=== PATIENT | female | born 1970 | race Caucasian/White ===

== ENCOUNTER 2017-12-09 10:39 | Day surgery (SDC) | END 2017-12-09 15:37 | disposition home or self-care (01) ==

== ENCOUNTER 2019-03-23 07:49 | Day surgery (SDC) | payer OTHER ==
[~2019-03-23] VITALS: Ht 157.5 cm; Wt 90.3 kg
[2019-03-23] VITALS (12 sets, daily range): BP systolic 108–136; BP diastolic 63–75; PULSE 58–88; RESP 16–22; Ht 157.5 cm; Wt 90.3 kg
[~2019-03-23 07:49] MED LIST: CEFAZOLIN 2 GM/50 ML (PMX) 50 ML IVPB SCH; KETO5DRO BOTH EYES; MINE3.5O31 BOTH EYES; NAPR-688 PO
--- NOTE | 2019-03-23 08:32 | PREAC ---
Date/Time of Note Date/Time of Note DATE: 03/23/19 TIME: 08:30 Anesthesia Eval and Record Evaluation Time Pre-Procedure Interview DATE: 03/23/19 TIME: 08:30 Age 48 Sex female NPO: 8 hrs Preoperative diagnosis right 5th hammertoe Planned procedure exostectomy,right 5th hammertoe correction Past Medical History Past Medical History: Includes GI: Obesity (bmi 36) Surgery & Anesthesia Issues No known issue Meds Anticoagulation: No Beta Billy within 24 hr: No Reason Beta Billy not given: Pt. not on B-Billy Reported Medications Naproxen* (Naproxen*) 500 Mg Tablet, 500 MG PO BID PRN for PAIN AND/OR INFLAMMATION, TAB 12/09/17 Discontinued Reported Medications Ketotifen Fumarate (EYE ITCH RELIEF) 5 Ml Drops, 1 BOTH EYES BID, BOTTLE 12/09/17 Artificial Tears* (Akwa Oint*) 3.5 Gm Oint, 1 APPLIC BOTH EYES HS, #1 TUB 12/09/17 Current Medications Cefazolin Sodium/ Dextrose 50 ml @ 100 mls/hr PREOP IVPB ; Start 03/23/19 at 06:00; Stop 03/23/19 at 19:00 Meds reviewed: Yes Allergies Coded Allergies: No Known Allergy (Unverified , 03/23/19) Allergies Reviewed: Yes Labs/Studies Labs Reviewed: Reviewed by anesthesiologist test: Negative Pre-procedure Exam Airway: Adequate mouth opening Mallampati: Mallampati II Teeth: Normal Lung: Normal Heart: Normal ASA Physical Status ASA physical status: 2 Emergency: None Planned Anesthetic General/MAC: LMA Planned Pain Management Parenteral pain med, Local by surgeon Pre-operative Attestations Prior to commencing anesthesia and surgery, the patient was re-evaluated, there was verification of: *The patient's identity *The results of appropriate recent lab work and preoperative vital signs *The above evaluation not changing prior to induction *Anesthetic plan, risk benefits, alternative and complications discussed with patient/family; questions answered; patient/family understands, accepts and wishes to proceed. TRACIE REID March 23, 2019 08:32
[2019-03-23] MEDS ORDERED: MIDAZOLAM 1 MG/ML 2 ML INJ ONE (08:44)
[2019-03-23] MEDS ORDERED: CEFAZOLIN 1 GM INJ ONE (08:44)
[2019-03-23] MEDS ORDERED: LIDOCAINE 2% (SDV) 5 ML INJ ONE (08:44)
[2019-03-23] MEDS ORDERED: FENTAnyl 50 MCG/ML VIAL ONE (08:44)
[2019-03-23] MEDS ORDERED: PROPOFOL 20 ML ONE ×2 (08:44→10:07)
[2019-03-23] MEDS ORDERED: POLYMYXIN/BACITRACIN 1L IRRIG ONE (08:50)
[2019-03-23] MEDS ORDERED: BUPIVACAINE 0.5% (SDV) 30 ML INJ ONE (08:58)
[2019-03-23] MEDS ORDERED: LIDOCAINE 2% (MDV) 20 ML INJ ONE (08:58)
[2019-03-23] MEDS ORDERED: LACTATED RINGER'S 500 ML IV ONE (09:00)
--- NOTE | 2019-03-23 09:33 | HPN ---
Date/Time of Note Date/Time of Note DATE: 03/23/19 TIME: 09:33 Interval H&P Admission Note Pt. seen H&P reviewed: No system changes LUX AMOS DPM March 23, 2019 09:33
[2019-03-23] MEDS ORDERED: DEXAMETHASONE 4 MG/ML 5 ML INJ ONE (09:54)
[2019-03-23] MEDS ORDERED: ONDANSETRON 4 MG INJ ONE (09:54)
[2019-03-23] MEDS ORDERED: EPHEDrine 25 MG/5 ML SYG ONE (10:21)
[2019-03-23] MEDS ORDERED: ONDANSETRON 4 MG INJ IV PRN (10:30)
[2019-03-23] MEDS ORDERED: OXYCODONE/ACETAMINOPHEN (5/325) TAB PO PRN ×2 (10:30)
[2019-03-23] MEDS ORDERED: HYDROmorphONE 1 MG/5 ML IV SYRINGE IV PRN ×3 (10:30)
[2019-03-23] MEDS ORDERED: MEPERIDINE 25 MG INJ IV PRN (10:30)
--- NOTE | 2019-03-23 10:44 | SIPON ---
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
--- NOTE | 2019-03-23 10:45 | OPR ---
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 Clinical and radiographic examination revealed significant condition requiring surgical management therefore authorization was submitted for revisional surgery of the right fifth toe hammertoe deformity. Risks and complications of this type of surgery was discussed with patient in great detail including but not limited to recurrence of the problem, failure of surgery to correct the problem, need for additional surgical procedures, postoperative infection, postoperative pain, chronic disability, short-term disability, nonunion, delayed union, malunion of bone, failure of hardware, pain secondary to neurovascular damage, deep venous thrombosis, limb loss and loss of life. The patient acknowledges understanding of the discussion and agrees to the procedure. An informed consent was obtained, signed and placed in the chart. No guarantee or warranty was given or implied as to the outcome of the procedure either in verbal or written form. Procedure Description The patient was seen in the preoperative area. Opportunity was given to patient to ask questions and all questions were answered. Patient acknowledges understanding of the discussion. The patient was then taken to the operating room and was placed on the operating table in the supine position. Patient was placed under mild IV sedation and I injected her right foot with 20 cc of a one-to-one mixture of 2% lidocaine plain and 0.5% Marcaine plain. A pneumatic ankle tourniquet was applied to the right lower extremity. The right foot was then scrubbed, prepped and draped in the usual aseptic manner. An Esmarch bandage was utilized to exsanguinate the right foot and the pneumatic ankle tourniquet was deflated at this time to 250 mmHg pressure. Procedure #1: Surgical revisional correction of right fifth hammertoe deformity Attention was directed to the right fifth toe. Contracted right fifth toe noted with scar tissue on the dorsal lateral aspect. I made to semielliptical i ncisions encompassing the scar tissue present using a #15 blade. Bleeders were cauterized as necessary. Vital neurovascular structures were identified and protected as needed. Dissection continued deep to the extensor tendon and the tendon was transected at the level of the proximal interphalangeal joint exposing the joint itself. Using a power saw, the head of the proximal phalanx was cut and passed to the back table. Next, the base of the middle phalanx was denuded of cartilage. At this point I checked to see if the toe was reduced and it was reduced to desired position. Next, a 0.045 K wire was inserted for fixation. The extensor tendon was reapproximated using 4-0 Vicryl suture. The skin was closed using 5-0 Monocryl in subcuticular stitch pattern. Steri-Strips were applied. Postoperative injection was given about 10 cc of 0.5% Marcaine plain. Sterile dressing was applied. The pneumatic ankle tourniquet was deflated at this time and prompt hyperemic response was noted to the digits of the right foot. The patient tolerated the procedure and anesthesia well. She was transferred to the recovery room with vital signs stable and vascular status intact to the remaining right foot. The patient will be discharged home after postoperative monitoring. Postoperative orders have been written. Patient may remain partial weightbearing on her right foot with a postop shoe and crutches. Prescription for pain medication was electronically submitted to patient's pharmacy. Patient has been to be followed up in my office in 1 week. LUX AMOS DPM March 23, 2019 10:45
--- NOTE | 2019-03-23 11:42 | PAC ---
Date/Time of Note Date/Time of Note DATE: 03/23/19 TIME: 11:42 Post-Anesthesia Notes Post-Anesthesia Note Last documented vital signs Vital Signs Date Temp Pulse Resp B/P (MAP) Pulse Ox O2 O2 Flow FiO2 Time Delivery Rate 03/23/19 60 20 112/74 100 Room Air 11:07 (87) 03/23/19 98.2 10:38 03/23/19 8.0 10:35 Activity: WNL Respiratory function: WNL Cardiovascular function: WNL Mental status: Baseline Pain reasonably controlled: Yes Hydration appropriate: Yes Nausea/Vomiting absent: Yes TRACIE REID March 23, 2019 11:42
== END 2019-03-23 12:40 | disposition home or self-care (01) ==
LOC: SDS 07:49
PROVIDERS: ATTEND Podiatrist Foot & Ankle Surgery
DX: M20.41 Other hammer toe(s) (acquired), right foot (principal)
CPT/HCPCS: 28285; 73620; 88304; 88311; C1713; J0690; J1100; J2250; J2405; J3010; Z7512; Z7610